=== PATIENT | male | born 1975 | race African-American/Black ===

== ENCOUNTER 2021-03-12 16:26 | Emergency (ER) | payer MEDICARE, MEDICAID, SELFPAY ==
--- NOTE | ~2021-03-12 | CT_ITS ---
EXAMINATION: CT brain wo con DATE: 03/12/2021 19:26 INDICATION: Confusion, hallucinations. History of bipolar and schizophrenia. TECHNIQUE: Computed tomography (CT) of the head was performed without intravenous contrast. The mA wa s adjusted according to patient size. Iterative reconstruction technique was employed. Exam dose: 60 5.33 mGy-cm total exam DLP. COMPARISON: None FINDINGS: No intracranial mass lesion or hemorrhage or cerebrovascular accident. No midline shift or mass effect. Normal ventricular size. Normal simons-white matter differentiation. No subdural or epidur al hematoma. No fracture or bone destruction of the cranial vault. Mastoid air cells are well-developed and aerate d. Included paranasal sinuses are normally developed and aerated. IMPRESSION: No significant abnormality Reviewed, dictated and finalized at [facility] Reviewed, dictated and finalized at [facility] IMPRESSION: No significant abnormality
[2021-03-12 18:11] VITALS: BP 114/68; PULSE 77; RESP 14; TEMP 36.8; O2SAT 90
[2021-03-12 18:32] VITALS: BP 120/77; PULSE 80; RESP 16; TEMP 36.8
[2021-03-12 18:40] LABS: Glucose Point of Care 109 mg/dl (65-105)
--- NOTE | 2021-03-12 18:40 | ED.ANXIETY ---
HPI - Anxiety General Chief Complaint: Anxiety Stated Complaint: STRESSED OUT NO HI OR SI Time Seen by Provider: 03/12/21 18:21 Source: patient Mode of arrival: ambulatory Limitations: no limitations History of Present Illness HPI narrative: This is a 45 year old male that presents to the ER for medication for his Schizophrenia. Reports he gets his care through [facility]. Reports he gets an injectable medication. Does not know the name. Reports he has not received this in a couple months. He denies any suicidal or homicidal ideations currently. He has had psychiatric hospitalizations in the past. Does have history of self harm. Denies any hallucinations, but feels as though he has gaps in time that he has lost. Related Data Home Medications Medication Instructions Recorded Confirmed omeprazole magnesium [Prilosec OTC] 20 mg PO DAILY 06/09/19 quetiapine 600 mg PO BID 06/09/19 risperidone 3 mg PO BID 06/09/19 Allergies Allergy/AdvReac Type Severity Reaction Status Date / Time No Known Allergies Allergy Verified 03/12/21 18:35 Review of Systems Review of Systems: CONSTITUTIONAL: Denies fever PSYCHIATRIC: Reports schizophrenia All systems reviewed & are unremarkable except as noted in HPI and below PMFSH Past Medical History Medical History (Updated 03/12/21 @ 22:56 by Aliza Bailey PA-C) GERD (gastroesophageal reflux disease) History of bipolar disorder Surgical History Surgical History (Updated 06/09/19 @ 17:10 by Gali Ferguson) No pertinent past surgical history Social History Social History (Updated 06/09/19 @ 17:11 by Gali Ferguson) Smoking status: Current every day smoker Tobacco type: cigarettes Substance use type: does not use Gender identity (if verbalized by the patient): Male Exam Narrative: GENERAL: Well-appearing, well-nourished, and in no acute distress. HEAD: Normocephalic, atraumatic. EYES: EOMI. CHEST: Clear to auscultation. No respiratory distress. No wheezes rales or rhonchi HEART: Regular rate and rhythm. No murmur heard. Normal peripheral pulses. EXTREMITIES: Normal range of motion. No edema. SKIN: Warm, dry, no rash. NEURO: No focal deficits. Alert and oriented x3. PSYCH: Depressed mood and affect Course Consultations Consultation #1: Crisis did come evaluate the patient. There is a safety plan in place. He is to follow-up with [email or web address] for further management of his psychiatric diagnoses. Date: 03/12/21 Time: 22:58 Vital Signs Vital signs: Vital Signs Temperature 98.2 F 03/12/21 18:11 Pulse Rate 77 03/12/21 18:11 Respiratory Rate 14 03/12/21 18:11 Blood Pressure 114/68 03/12/21 18:11 Pulse Oximetry 90 03/12/21 18:11 Temperature 98.2 F 03/12/21 18:32 Pulse Rate 75 03/12/21 22:16 Respiratory Rate 16 03/12/21 22:16 Blood Pressure 112/67 03/12/21 22:16 Pulse Oximetry 100 03/12/21 22:16 MDM - Anxiety MDM Narrative Medical decision making narrative: Patient presents to the emergency department for psychiatric evaluation. Patient reported a history of schizophrenia. Per chart review patient has diagnosis of bipolar depression. He has medications listed as quetiapine and risperidone. Is not currently taking these medications. He does not report any visual or auditory hallucinations. He denies any thoughts of harming himself or anyone else. He does live with his mom and have family in the area. His vitals are stable. Laboratory evaluation is without acute findings. CT scan of his brain is normal. Patient was updated on case findings. Crisis did come evaluate the patient. There is a safety plan in place. He is to follow-up with [email or web address] for further management of his psychiatric diagnoses. Patient is stable and felt appropriate for further outpatient evaluation. He was given warnings to return the ER Lab Data Attestation: I reviewed the patient's lab results. Result diag
[2021-03-12 19:01] LABS: Basophils Percent Auto 0.7 % (0.2-1.2); Hematocrit 33.6 % (42.0-52.0); Hemoglobin 10.4 g/dL (14.0-18.0); Immature Granulocyte Absolute 0.01 K/mm3 (0.00-0.031); Immature Granulocyte Percent A 0.2 % (0-0.5); Lymphocytes Absolute Auto 2.13 K/mm3 (0.9-3.2); Lymphocytes Percent Auto 35.4 % (18.3-44.2); Mean Corpuscular Hemoglobin 24.5 pg (26-34); Mean Corpuscular Volume 79.2 fl (80-100); Mean Platelet Volume 10.4 fl (7.4-10.4); Monocytes Absolute Auto 0.8 K/mm3 (0.1-0.6); Monocytes Percent Auto 12.5 % (2.6-8.5); Neutrophils Absolute Auto 3.1 K/mm3 (1.3-6.7); Neutrophils Percent Auto 51.2 % (45.5-73.1); Platelet Count Result 278 k/mm3 (150-375); Red Blood Count 4.24 M/mm3 (4.6-6.20); Red Cell Distribution Width 16.4 % (11.5-14.5)
[2021-03-12 19:14] LABS: Ethanol < 10 mg/dL (<10)
[2021-03-12 19:17] LABS: Alanine Aminotransferase 18 U/L (4-50); Albumin Level 3.9 g/dL (3.5-5.1); Alkaline Phosphatase 65 U/L (38-126); Anion Gap 5 mmol/L (8-16); Aspartate Amino Transferase 27 U/L (17-59); Bilirubin,Total 0.1 mg/dL (0.2-1.3); Blood Urea Nitrogen 13 mg/dL (9-20); Calcium 8.7 mg/dL (8.4-10.2); Carbon Dioxide 25 mmol/L (22-30); Chloride 105 mmol/L (98-107); Estimated CRCL calculation 108 ml/min; Estimated Glomerular Filt Rate > 60; Glucose 98 mg/dL (65-110); Potassium 3.8 mmol/L (3.4-5.0); Sodium 135 mmol/L (137-145)
--- NOTE | 2021-03-12 19:17 | PC.NURSE ---
report to orlin lujan
[2021-03-12 19:47] LABS: Thyroid Stimulating Hormone 0.898 uIU/mL (0.465-4.680)
[2021-03-12 20:09] LABS: Amphetamine Screen Urine Negative (Negative); Barbiturate Screen Urine Negative (Negative); Benzodiazepines Screen Urine Negative (Negative); Cannabinoid Screen Urine Negative (Negative); Cocaine Screen Urine Negative (Negative); Methadone Screen Urine Negative (Negative); Opiate Screen Urine Negative (Negative); Phencyclidine Screen Urine Negative (Negative)
[2021-03-12 20:34] LABS: Add Urine Microscopic? NO; Appearance Urine Clear (Clear); Bilirubin Urine Negative (Negative); Blood Urine Negative (Negative); Color Urine Yellow (Yellow); Glucose Urine UA Negative (Negative); Ketones Urine Negative (Negative); Leukocyte Esterase Ur Negative LEU/UL (Negative); Nitrate Urine Negative (Negative); Protein Urine Negative (Negative); Specific Grav Ur >= 1.030 (1.001-1.035); Urobilinogen Urine 0.2 mg/dL (<2.0); pH Urine 5.5 (5.0-9.0)
[2021-03-12 22:16] VITALS: BP 112/67; PULSE 75; RESP 16; O2SAT 100
[2021-03-12 23:18] VITALS: BP 115/80; PULSE 70; RESP 16; O2SAT 100
== END 2021-03-12 23:20 | disposition home or self-care (01) ==
PROVIDERS: Physician Assistant; Emergency Provider Emergency Medicine
DX: F31.30 Bipolar disorder, current episode depressed, mild or moderate severity, unspecified (principal); F20.9 Schizophrenia, unspecified; K21.9 Gastro-esophageal reflux disease without esophagitis; F17.210 Nicotine dependence, cigarettes, uncomplicated; Z79.899 Other long term (current) drug therapy
CPT/HCPCS: 36415; 70450; 80053; 80307; 81003; 82948; 84443; 85025; 99284

== ENCOUNTER 2021-03-29 02:19 | Emergency (ER) | payer MEDICARE, MEDICAID, SELFPAY ==
[2021-03-29 02:24] VITALS: BP 111/79; PULSE 80; RESP 18; TEMP 36.4; O2SAT 99
[2021-03-29] MEDS: hydrOXYzine pamoate 25 MG CAPSULE 50 MG PO (02:49)
--- NOTE | 2021-03-29 02:55 | ED.GENADULT ---
HPI - General Adult General Chief complaint: Unspecified Stated complaint: can't sleep Time Seen by Provider: 03/29/21 02:31 History of Present Illness HPI narrative: Patient is a 45-year-old gentleman who presents the emergency department with chief complaint of unable to sleep. Patient reports that for the last year he has had difficulty sleeping and reports that he has history of schizophrenia. The patient reports that a few weeks ago he had his injectable medication done at [place] denies suicidal or homicidal ideation denies auditory or visual hallucinations. Related Data Home Medications Medication Instructions Recorded Confirmed omeprazole magnesium [Prilosec OTC] 20 mg PO DAILY 06/09/19 quetiapine 600 mg PO BID 06/09/19 risperidone 3 mg PO BID 06/09/19 Allergies Allergy/AdvReac Type Severity Reaction Status Date / Time No Known Allergies Allergy Verified 03/12/21 18:35 Review of Systems Review of Systems: A 10 system review of systems was completed on the patient and is negative except for what is stated in the HPI. Nursing and ancillary documentation was reviewed. [facility] Past Medical History Medical History GERD (gastroesophageal reflux disease) History of bipolar disorder Surgical History Surgical History No pertinent past surgical history Social History Social History Smoking status: Current every day smoker Tobacco type: cigarettes Substance use type: does not use Gender identity (if verbalized by the patient): Male Exam Narrative: GENERAL: Well-appearing, well-nourished, and in no acute distress. HEAD: Normocephalic, atraumatic. EYES: PERRLA and EOMI. ENT: Nares clear, no rhinorrhea or epistaxis. Mucous membranes moist. NECK: Supple. CHEST: Clear to auscultation. No respiratory distress. HEART: Regular rate and rhythm. No murmur heard. Normal peripheral pulses. ABDOMEN: Soft, nontender, nondistended, normal active bowel sounds. EXTREMITIES: Normal range of motion. No edema. SKIN: Warm, dry, no rash. NEURO: No focal deficits. Alert and oriented x3. PSYCH: Normal mood and affect. Course Vital Signs Vital signs: Vital Signs Temperature 36.4 C L 03/29/21 02:24 Pulse Rate 80 03/29/21 02:24 Respiratory Rate 18 03/29/21 02:24 Blood Pressure 111/79 03/29/21 02:24 Pulse Oximetry 99 03/29/21 02:24 Temperature 36.4 C L 03/29/21 02:24 Pulse Rate 80 03/29/21 02:24 Respiratory Rate 18 03/29/21 02:24 Blood Pressure 111/79 03/29/21 02:24 Pulse Oximetry 99 03/29/21 02:24 Medical Decision Making Vital Signs Vital Signs: Vital Signs Temperature 36.4 C L 03/29/21 02:24 Pulse Rate 80 03/29/21 02:24 Respiratory Rate 18 03/29/21 02:24 Blood Pressure 111/79 03/29/21 02:24 Pulse Oximetry 99 03/29/21 02:24 Temperature 36.4 C L 03/29/21 02:24 Pulse Rate 80 03/29/21 02:24 Respiratory Rate 18 03/29/21 02:24 Blood Pressure 111/79 03/29/21 02:24 Pulse Oximetry 99 03/29/21 02:24 Discharge Plan Discharge Clinical Impression: Insomnia Qualifiers: Insomnia type: unspecified Qualified Code(s): G47.00 - Insomnia, unspecified Patient Disposition: Home, Self-Care Condition: Stable Instructions: Antibiotic Form, Insomnia (ED) Prescriptions: New hydroxyzine HCl 50 mg tablet 50 mg PO HS PRN (Reason: insomnia) Qty: 10 RF: 0 No Action quetiapine 300 mg tablet 600 mg PO BID RF: 0 risperidone 3 mg tablet 3 mg PO BID RF: 0 omeprazole magnesium [Prilosec OTC] 20 mg Tablet,Delayed Release (Dr/Ec) 20 mg PO DAILY RF: 0 Follow-up/Referrals: PHYSICIAN,[facility]ACH[facility]RA[facility] [Primary Care Provider] - Thee Bone MD [Physician] - Time of Disposition: 03:36
[2021-03-29 04:33] VITALS: BP 119/79; PULSE 86; RESP 16; O2SAT 100
== END 2021-03-29 04:35 | disposition home or self-care (01) ==
PROVIDERS: Emergency Provider Emergency Medicine
DX: G47.00 Insomnia, unspecified (principal); K21.9 Gastro-esophageal reflux disease without esophagitis; F17.210 Nicotine dependence, cigarettes, uncomplicated; F20.9 Schizophrenia, unspecified; F31.9 Bipolar disorder, unspecified
CPT/HCPCS: 99283; A9270